=== PATIENT | male | born 1985 | race Two or more races ===

== ENCOUNTER 2017-12-15 16:58 | Emergency (ER) | payer SELFPAY ==
[~2017-12-15] VITALS: Ht 167.6 cm; Wt 90.7 kg
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
[2017-12-15] MEDS ORDERED: LIDOCAINE 1%-EPI 1:100,000 20 ML VIAL ONE (17:14)
[2017-12-15] MEDS ORDERED: MORPHINE SULFATE INJ 2 MG/ML DISP.SYRIN IV ONE ×2 (17:30→20:00)
[2017-12-15] MEDS ORDERED: IV NS 0.9% 1,000 ML BAG IV ONE (17:30)
[2017-12-15] MEDS ORDERED: ONDANSETRON HCL/PF 4 MG/2 ML VIAL IVP ONE (17:30)
[2017-12-15] MEDS ORDERED: CEFAZOLIN 2 GM in IV D5W 100 ML IV ONE (17:30)
[2017-12-15] MEDS ORDERED: ONDANSETRON HCL/PF 4 MG/2 ML VIAL ONE (17:32)
[2017-12-15] MEDS ORDERED: MORPHINE SULFATE INJ 4 MG/ML DISP.SYRIN ONE ×2 (17:33→19:44)
[2017-12-15 17:50] LABS: BASOPHILS # (AUTO) 0.1 /CMM (0.0-0.2); BASOPHILS % (AUTO) 1.3 % (0.0-2.0); EOSINOPHILS % (AUTO) 1.1 % (0.0-6.0); HEMATOCRIT 44 % (39-51); HEMOGLOBIN 15.4 g/dL (13.5-17.5); LYMPHOCYTES # (AUTO) 1.7 /CMM (0.8-4.8); LYMPHOCYTES % (AUTO) 18.3 % (20.0-44.0); MEAN CORPUSCULAR HEMOGLOBIN 32 PG (26.0-33.0); MEAN CORPUSCULAR HGB CONC 35 g/dl (31.0-36.0); MEAN CORPUSCULAR VOLUME 90 fL (80-96); MONOCYTES # (AUTO) 0.6 /CMM (0.1-1.30); MONOCYTES % (AUTO) 6.9 % (2.0-12.0); NEUTROPHILS # (AUTO) 6.7 /CMM (1.8-8.9); NEUTROPHILS % (AUTO) 72.4 % (43.0-81.0); PLATELET COUNT (AUTO) 418 /CMM (150-450); RDW COEFFICIENT OF VARIATION 11.9 (11.5-15.0); RED BLOOD CELL COUNT(AUTO) 4.88 MIL/uL (4.5-6.0); WHITE BLOOD COUNT (AUTO) 9.2 K/uL (4.3-11.0)
[2017-12-15 17:58] LABS: CALCIUM, SERUM 8.9 mg/dL (8.5-10.1); POTASSIUM 3.6 mmol/L (3.5-5.1)
[2017-12-15] MEDS ORDERED: IOHEXOL-350 100 ML VIAL IV ONE (18:02)
[2017-12-15] MEDS ORDERED: CT SWABBABLE VALVE TRANS SET 1 EA INFUS.SET MC ONE (18:03)
[2017-12-15] MEDS ORDERED: IV NS 0.9% 250 ML IV ONE (18:03)
--- NOTE | 2017-12-15 18:03 | NUR ---
JC LUGO IS AT THE BEDSIDE.
--- NOTE | 2017-12-15 18:04 | NUR ---
PT TRANSPORTED TO [facility] IN STABLE CONDITION
--- NOTE | 2017-12-15 18:30 | NUR ---
RESTING QUIETLY, NAD NOTED. VSS. ALL NEEDS ATTENDED TO.
--- NOTE | 2017-12-15 18:42 | NUR ---
CO-WORKERS WHO ARE ABLE TO IT [employer] [facility] MIDNIGHT [place] MAHAN SAVANAH AFTER MIDNIGHT ANYTIME JORGE
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
--- NOTE | 2017-12-15 20:37 | NUR ---
DR. WAHL AT BEDSIDE SPEAKING TO PT REGARDING RESULTS.
[2017-12-15 20:54] VITALS: BP 138/90
== END 2017-12-15 20:56 | disposition home or self-care (01) ==
LOC: ER 16:59
DX: S01.81XA Laceration without foreign body of other part of head, initial encounter (principal); V13.4XXA Pedal cycle driver injured in collision with car, pick-up truck or van in traffic accident, initial encounter; Y93.55 Activity, bike riding; Y92.413 State road as the place of occurrence of the external cause; Y99.8 Other external cause status
CPT/HCPCS: 13152; 13153; 36415; 70450; 70486; 70498; 72125; 80048; 85025; 96365; 96375; 96376; 99291; A4606; A6403; J0690; J2270 ×2; J2405; J3490; J7050; J7060; Q9967; Z7610